=== PATIENT | male | born 1945 | race Caucasian/White ===

== ENCOUNTER 2018-02-06 10:10 | Day surgery (SDC) | payer OTHER ==
[2018-02-04 12:02] LABS: Urine Appearance CLEAR; Urine Bilirubin NEGATIVE (NEG); Urine Blood NEGATIVE (NEG); Urine Color YELLOW; Urine Glucose NEGATIVE (NEG); Urine Protein NEGATIVE (NEG)
[2018-02-04 12:06] LABS: Urine Microscopic Reflex NO UMIC
[2018-02-04 12:06] LABS: Protime INR 1.07
[2018-02-04 12:14] LABS: Potassium 4.4 mmol/L (3.5-5.1)
--- NOTE | 2018-02-04 12:25 | RAD REPORT ---
EXAM DESCRIPTION: Ivana Sanchez And Dayana (2 Views)02/04/2018 12:19 pm CLINICAL HISTORY: Preop for prostate surgery COMPARISON: October 18, 2017 FINDINGS: The lungs appear clear of acute infiltrate. The heart is normal size IMPRESSION: No acute abnormalities displayed
[2018-02-04 12:56] LABS: Absolute Monocytes 0.3 K/uL (0.1-1.3); Absolute Neutrophil 2.7 K/uL (1.8-8.0); Eosinophils % 2.1 % (0-4.4); Hematocrit 29.5 % (39.6-49.0); Lymphocytes % 23.7 % (15.3-44.8); MCH 24.2 pg (27.0-35.0); MCV 74.1 fL (80-100); MPV 7.9 fL (7.6-11.3); Monocytes % 7.8 % (3.3-12.3); RBC Red Blood Cell Count 3.98 M/uL (4.33-5.43)
--- NOTE | 2018-02-04 15:46 | EKG ---
Test Date: 2018-02-04 Test Time: 11:28:54 Jet Inspector: KATHRIN MEASUREMENT RESULTS: Intervals: Rate: 68 IA: 242 QRSD: 82 QT: 404 QTc: [address]: P: 27 IA: 242 QRS: 7 T: 22 INTERPRETIVE STATEMENTS: Sinus rhythm with 1st degree AV block Otherwise normal ECG Compared to ECG 11/26/2003 08:54:00 First degree AV block now present Electronically Signed On 02-04-18 15:46:09 CDT by Fernando Sam
[2018-02-06] MEDS ORDERED: NA CHLORIDE 0.9% 1,000 ML ONE (10:20)
[2018-02-06] MEDS ORDERED: PROPOFOL 200 MG/20 ML VIAL IV ONE (10:40)
[2018-02-06] MEDS ORDERED: MIDAZOLAM HCL 2 MG/2 ML INJ ONE (10:40)
[2018-02-06] MEDS ORDERED: FENTANYL CITR 100 MCG/2 ML ONE (10:41)
[2018-02-06] MEDS: GENTAMICIN 100 MG/100 ML BAG 100 MG/100 ML BAG IV ONE ×2 (11:08→11:35)
== END 2018-02-06 14:05 | disposition home or self-care (01) ==
LOC: OR 10:10
PROVIDERS: ATTEND Urology
PROC: 0VB08ZZ Excision of Prostate, Via Natural or Artificial Opening Endoscopic (ICD-10-PCS; principal; 2018-02-06 11:00)
DX: N40.1 Benign prostatic hyperplasia with lower urinary tract symptoms (principal); R35.0 Frequency of micturition; R39.14 Feeling of incomplete bladder emptying; R39.16 Straining to void; R39.15 Urgency of urination; R39.12 Poor urinary stream; J44.9 Chronic obstructive pulmonary disease, unspecified; I10 Essential (primary) hypertension; E78.2 Mixed hyperlipidemia; K21.9 Gastro-esophageal reflux disease without esophagitis; Z85.528 Personal history of other malignant neoplasm of kidney; Z90.5 Acquired absence of kidney; Z87.891 Personal history of nicotine dependence; I44.0 Atrioventricular block, first degree; Z79.82 Long term (current) use of aspirin; E11.9 Type 2 diabetes mellitus without complications; Z79.84 Long term (current) use of oral hypoglycemic drugs
CPT/HCPCS: 36415; 52601; 71046; 80048; 81003; 82962 ×2; 85025; 85610; 85730; 87086; 87088; 88305; 93005; J1580; J2250; J3010; J7030